=== PATIENT | female | born 1990 | race Hispanic/Latino ===

== ENCOUNTER 2025-03-18 21:39 | Emergency (ER) | payer SELFPAY ==
[2025-03-18] MEDS ORDERED: Ondansetron PF 4 MG/2 ML Vial ONE (23:21)
[2025-03-18] MEDS ORDERED: Ketorolac Tromethamine 30 MG (1 mL) VIAL ONE (23:21)
[2025-03-18] MEDS ORDERED: Dexamethasone 10 MG/ML VIAL ONE (23:21)
[2025-03-18] MEDS ORDERED: Acetaminophen 325 MG TAB ONE (23:42)
[2025-03-18] MEDS ORDERED: cefTRIAXone (ROCEPHIN) 2 GM VIAL ONE (23:43)
[2025-03-18 23:49] LABS: #Basophils Less than 0.03 10x3/uL (0.0-0.2); #Eosinophils Less than 0.03 10x3/uL (0.0-0.7); #Monocytes 0.50 10x3/uL (0.11-0.59); #Neutrophils 6.93 10x3/uL (1.40-6.50); %Basophils 0.1 % (0.0-1.0); %Eosinophils 0.0 % (0.0-10.0); %Lymphocytes 8.8 % (21.0-51.0); %Monocytes 6.1 % (0.0-10.0); %Neutrophils 84.5 % (42.0-75.0); Hematocrit 29.6 % (36.0-47.0); Hemoglobin 10.0 g/dL (12.0-16.0); Mean Corpuscular Hemoglobin 29.0 pg (27.0-31.0); Mean Corpuscular Volume 85.8 fL (78.0-98.0); Platelet Count 308 10x3/uL (130-400); Red Blood Cell (RBC) Count 3.45 mill/uL (4.20-5.40); White Blood Cell (WBC) Count 8.20 10x3/uL (4.8-10.8)
[2025-03-19 00:03] LABS: ALT (SGPT) 25 U/L (Less than 34); AST (SGOT) 35 U/L (11-34); Albumin 3.7 g/dL (3.1-4.5); Alkaline Phosphatase 53 U/L (40-110); Anion Gap 16 mmol/L (10-20); BUN (Urea Nitrogen) 10 mg/dL (7.0-18.7); Bilirubin, Total 0.3 mg/dL (0.3-1.2); CK (CPK) 197 U/L (29-168); Calc. Creatinine Clearance 0 mL/min (70-130); Calcium 8.9 mg/dL (7.8-10.44); Carbon Dioxide 23 mmol/L (22-29); Chloride 99 mmol/L (98-107); Globulin 4.1 g/dL (2.4-3.5); Glucose 102 mg/dL (70-105); Potassium 3.2 mmol/L (3.5-5.1); Sodium 135 mmol/L (136-145)
[2025-03-19] MEDS ORDERED: Ondansetron PF 4 MG/2 ML Vial ONE (01:55)
[2025-03-19] MEDS ORDERED: Azithromycin 250 MG TAB ONE (01:55)
== END 2025-03-19 03:39 | disposition home or self-care (01) ==
LOC: ERS 21:39
DX: J18.9 Pneumonia, unspecified organism (principal)
CPT/HCPCS: 71045; 80053; 82550; 83605; 85025; 87040; 87081; 87428; 87430; 96365; 96366; 96375; 96376; J0696; J1100; J1885; J2405; J3010; J7620

== ENCOUNTER 2025-04-05 12:19 | Emergency (ER) | payer SELFPAY ==
[2025-04-05] MEDS ORDERED: Azithromycin 250 MG TAB ONE (15:02)
[2025-04-05] MEDS ORDERED: Lidocaine 1% PF 5 ML VIAL ONE (15:03)
[2025-04-05] MEDS ORDERED: cefTRIAXone (ROCEPHIN) 500 MG VIAL ONE (15:03)
[2025-04-05 15:31] LABS: Pregnancy Test - Urine (BHCG) Negative (Negative); Pregu Control Background? CLEAR/WHITE (CLR/WHITE); Pregu Control Bar Appear? YES (CONTROL BAR)
[2025-04-05 15:36] LABS: Bacteria/HPF 2+ HPF (None Seen); CAUTI Indications for Culture Dysuria,urgency,freq; Glucose, Urine (Dipstick) Normal (Negative); Leukocyte 250 Leu/uL (Negative); Protein, Urine (Dipstick) Negative (Neg-Trace); RBC/HPF 0-3 HPF (0-3); Specific Gravity, Urine 1.030 (1.002-1.036); Yeast-Budding 1+ HPF (None Seen)
[2025-04-05 15:42] LABS: Urine Culture Reflex No No
[2025-04-06 10:39] LABS: Chlamydia by PCR, Vaginal Swab Not Detected (NotDetected); GC by PCR, Vaginal Swab Not Detected (NotDetected)
== END 2025-04-05 17:22 | disposition home or self-care (01) ==
LOC: ERS 12:19
DX: B37.31 Acute candidiasis of vulva and vagina (principal); N39.0 Urinary tract infection, site not specified; Z11.3 Encounter for screening for infections with a predominantly sexual mode of transmission
CPT/HCPCS: 81001; 81025; 87086; 87480; 87491; 87510; 87591; 87660; 96372; 99283; J0696